=== PATIENT | male | born 1990 | race Caucasian/White ===

== ENCOUNTER 2020-05-29 16:46 | Emergency (ER) | payer OTHER ==
[~2020-05-29] VITALS: Ht 180.3 cm; Wt 73.4 kg
--- NOTE | 2020-05-29 16:57 | NUR ---
YANELIS RN: C-COLLAR ON
--- NOTE | 2020-05-29 17:48 | NUR ---
DOT COMPLIANCE COORDINATOR: PT TO ROOM FROM LOBBY VIA W/C.
--- NOTE | 2020-05-29 17:53 | NUR ---
10'3" prefab wall balanced by hook onto shoulder. Too top heavy, tipped over and kinked neck and injured right shoulder. "everything locked up. felt like i was electricuted. i locked up and dropped to my knees"
--- NOTE | 2020-05-29 18:26 | NUR ---
PT RESTING ON GURNEY W/ CALL LIGHT IN REACH AND SIDE RAILS UPX2. VSS, NADN. CCOLLAR PRECAUTIONS IN PLACE. AWAITING CT.
--- NOTE | 2020-05-29 18:46 | NUR ---
PT RETURNED FROM CT.
--- NOTE | 2020-05-29 18:55 | NUR ---
REPORT GIVEN TO GEOVANNI PETERSON. PT RESP EVEN AND UNLABORED, NADN, CSPINE PRECAUTIONS IN PLACE. AWAITING CT RESULTS.
--- NOTE | 2020-05-29 19:00 | NUR ---
PT STATES HE IS HAVING PAIN BUT THAT HE DOES NOT WANT MEDICATIONS FOR PAIN. PT RESTING SUPINE WITH C COLLAR IN PLACE. AWAITING RESULTS OF CT SCAN
[2020-05-29 19:58] VITALS: BP 101/55
== END 2020-05-29 20:26 | disposition home or self-care (01) ==
LOC: ED 19:30
DX: S16.1XXA Strain of muscle, fascia and tendon at neck level, initial encounter (principal); X58.XXXA Exposure to other specified factors, initial encounter; Y93.89 Activity, other specified; Y92.89 Other specified places as the place of occurrence of the external cause; Y99.8 Other external cause status
CPT/HCPCS: 72125; 99284